=== PATIENT | female | born 1935 | race Two or more races ===

== ENCOUNTER 2020-06-29 07:15 | Inpatient (IN) | payer OTHER ==
[~2020-06-29] VITALS: Ht 160 cm; Wt 72.6 kg
[2020-06-29] MEDS ORDERED: OMEPRAZ PO (12:00)
[2020-06-29] MEDS ORDERED: CANDESARTAN-HC1 EACH PO (12:00)
[2020-06-29] MEDS ORDERED: ATORVASTATIN CA20 MG PO (12:01)
[2020-07-06] MEDS ORDERED: PROCTOCREAM-HC30 GM (14:06)
[2020-07-06] MEDS ORDERED: OMEPRAZOLE40 MG (14:06)
== END 2020-07-08 10:03 | disposition home or self-care (01) | DRG 738 ==
LOC: SURH 07-06 06:00 → O/R 07-06 06:00 → SURH 07-06 07:15
PROVIDERS: ADMIT Obstetrics & Gynecology Gynecologic Oncology; ATTEND Obstetrics & Gynecology Gynecologic Oncology
PROC: 0UT00ZZ Resection of Right Ovary, Open Approach (ICD-10-PCS; 2020-07-06)
PROC: 0DBU0ZZ Excision of Omentum, Open Approach (ICD-10-PCS; 2020-07-06)
PROC: 07BC0ZX Excision of Pelvis Lymphatic, Open Approach, Diagnostic (ICD-10-PCS; 2020-07-06)
PROC: 0UB50ZZ Excision of Right Fallopian Tube, Open Approach (ICD-10-PCS; principal; 2020-07-06 09:30)
DX: C56.1 Malignant neoplasm of right ovary (principal); N83.8 Other noninflammatory disorders of ovary, fallopian tube and broad ligament